=== PATIENT | male | born 1995 | race African-American/Black ===

== ENCOUNTER 2023-08-11 14:04 | Emergency (ER) | payer MEDICAID ==
[~2023-08-11] VITALS: Ht 172.7 cm; Wt 100.0 kg
[2023-08-11 14:10] VITALS: BP 142/78; PULSE 60; RESP 16; TEMP 98.9; O2SAT 100
[2023-08-11] MEDS ORDERED: OFLO5DRO4 LEFT EAR (15:34)
== END 2023-08-11 16:15 | disposition home or self-care (01) ==
LOC: ER 14:52
DX: H72.92 Unspecified perforation of tympanic membrane, left ear (principal)
CPT/HCPCS: 99281; 99283